=== PATIENT | female | born 1985 | race Caucasian/White ===

== ENCOUNTER 2019-03-13 18:14 | Emergency (ER) | payer OTHER ==
[2019-03-13 18:54] LABS: BASOPHILS % (AUTO) 0.5 %; EOSINOPHILS # (AUTO) 0.2 10^3/uL (0.0-0.7); EOSINOPHILS % (AUTO) 3.1 %; HGB - HEMOGLOBIN 12.1 g/dL (12.0-16.0); LYMPHOCYTES # (AUTO) 2.5 10^3/uL (1.5-3.5); LYMPHOCYTES % (AUTO) 44.9 %; MEAN CORPUSCULAR HEMOGLOBIN 28.1 pg (27.0-31.0); MEAN CORPUSCULAR HGB CONC 32.8 g/dL (32.0-36.0); MEAN CORPUSCULAR VOLUME 85.8 fL (81.0-99.0); MEAN PLATELET VOLUME 9.2 fL (7.9-10.8); MONOCYTES # (AUTO) 0.5 10^3/uL (0.0-1.0); MONOCYTES % (AUTO) 8.8 %; NEUTROPHILS # (AUTO) 2.4 10^3/uL (1.5-6.6); NEUTROPHILS % (AUTO) 42.5 %; PLT - PLATELET COUNT 219 10^3/uL (130-450); RED CELL DISTRIBUTION WIDTH 13.2 % (12.0-15.0); WHITE BLOOD COUNT 5.5 x10^3/uL (4.8-10.8)
[2019-03-13 19:04] LABS: ALBUMIN 4.3 g/dL (3.2-5.5); ALBUMIN/GLOBULIN RATIO 1.3 (1.0-2.2); BILIRUBIN,TOTAL 0.2 mg/dL (0.2-1.0); CREATININE 0.6 mg/dL (0.4-1.0); TOTAL PROTEIN 7.5 g/dL (6.7-8.2)
--- NOTE | 2019-03-13 19:33 | XRAY Report ---
Reason: CP Procedure Date: 03/13/2019 Accession Number: [id number] / [id number] Procedure: XR - Chest 1 View X-Ray CPT Code: 44953 Final Report FULL RESULT: EXAM: CHEST RADIOGRAPHY EXAM DATE: 03/13/2019 07:04 PM. CLINICAL HISTORY: Chest pain COMPARISON: None. TECHNIQUE: 1 view. FINDINGS: Lungs/Pleura: No focal opacities evident. No pleural effusion. No pneumothorax. Mediastinum: Within exam limitations, the cardiomediastinal contour is normal. Other: None. IMPRESSION: Normal single view chest. RADIA
--- NOTE | 2019-03-13 20:51 | ED Physician Documentation ---
History of Present Illness - Stated complaint Stated Complaint: CP, LT ARM PN, NAUSEA - Chief complaint Chief Complaint: Cardiac - Additonal information Additional information: This is a 33-year-old female history of anxiety presents with chest discomfort. Just before 5 PM patient was lying in the couch and she began having pain in her epigastric region which radiated to her chest, she states that when she started with some discomfort in her left arm as well, she called the nurse hotline and they suggested that she come here. She has never had a blood clot before, denies shortness of breath, no cough or hemoptysis, no fever. She has a little bit of nausea but no vomiting. She denies any cardiac or pulmonary history. No recent immobilization, hospitalization, long travel. No leg swelling. Her discomfort now has subsided. Review of Systems Constitutional: denies: Fever Nose: denies: Rhinorrhea / runny nose Cardiac: reports: Chest pain / pressure Respiratory: denies: Dyspnea GI: denies: Vomiting : denies: Dysuria Neurologic: denies: Generalized weakness PD PAST MEDICAL HISTORY - Past Medical History Psych: Anxiety - Allergies Allergies/Adverse Reactions: Allergies Allergy/AdvReac Type Severity Reaction Status Date / Time No Known Drug Allergies Allergy Verified 03/13/19 18:31 - Living Situation Living Arrangement: reports: At home - Social History Does the pt drink ETOH?: No - Family History Family history: reports: Non contributory PD ED PE NORMAL - General General: Alert and oriented X 3 - HEENT HEENT: Atraumatic - Neck Neck: Supple, no meningeal sign - Cardiac Cardiac: RRR - Respiratory Respiratory: No respiratory distress, Clear bilaterally - Abdomen Abdomen: Soft, Non distended (Very mild epigastric tenderness to deep palpation, no RUQ or lower abdominal tenderness.) - Neuro Neuro: Alert and oriented X 3 Results - Vitals Vitals: Vital Signs - 24 hr 03/13/19 03/13/19 03/13/19 18:26 19:52 21:01 Temperature 36.7 C Heart Rate 85 72 93 Respiratory 18 17 17 Rate Blood Pressure 120/75 109/75 145/83 H O2 Saturation 100 100 99 03/13/19 21:30 Temperature Heart Rate 52 L Respiratory 17 Rate Blood Pressure 100/70 O2 Saturation 98 Oxygen O2 Source Room air - EKG (time done) 18:46 Other comments: Other comments (Rate 80, rhythm sinus, No ST segment changes, no abnormal T wave inversions, intervals within normal limits) - Labs Labs: Laboratory Tests 03/13/19 03/13/19 03/13/19 18:46 18:46 18:46 WBC 5.5 RBC 4.30 Hgb 12.1 Hct 36.9 L MCV 85.8 MCH 28.1 MCHC 32.8 RDW 13.2 Plt Count 219 MPV 9.2 Neut # (Auto) 2.4 Lymph # (Auto) 2.5 Callahan # (Auto) 0.5 Eos # (Auto) 0.2 Baso # (Auto) 0.0 Absolute Nucleated RBC 0.00 Nucleated RBC % 0.0 Sodium 138 Potassium 3.3 L Chloride 105 Carbon Dioxide 25 Anion Gap 8.0 BUN 15 Creatinine 0.6 Estimated GFR (MDRD) 114 Glucose 92 Calcium 9.0 Total Bilirubin 0.2 AST 23 ALT 31 Alkaline Phosphatase 38 L Troponin I High Sens < 2.3 L Total Protein 7.5 Albumin 4.3 Globulin 3.2 Albumin/Globulin Ratio 1.3 Lipase 49 PD MEDICAL DECISION MAKING - ED course Complexity details: considered differential (Gastritis, GERD, PUD, ACS, dysrhythmia, PE, PNA, PTX) ED course: Pt presents with epigastric/chest discomfort that is now resolving. EKG shows no signs of ischemia or dysrhythmia, CXR unrevealing, labs unremarkable. Pt is very low risk for ACS and her high-sensitivity troponin is also negative. The characteristics of her symptoms are not consistent with PE, and she has normal O2 saturation, heart rate, no signs DVT, no immobilization or surgery, no hist ory of blood clots, making this further unlikely. The location of her pain does raise concern for GERD or gastritis. Abdomen is benign with no RUQ or lower abdominal pain, no signs of acute abdominal pathology. She was given famotidine. Given that she is feeling improved I discussed strict return precautions and PCP follow up and patient was discharged home. Departure - Departure Disposition: 01 Home, Self Care Clinical Impression: Chest pain Qualifiers: Chest pain type: unspecified Qualified Code(s): R07.9 - Chest pain, unspecified Condition: Good Instructions: ED Chest Pain Atypical Unkn Cause Follow-Up: Your,PCP [Other] Comments: You were seen today for pain in the upper abdomen/chest,, Your blood counts were normal, your labs at this time are reassuring and your chest x-ray was also normal. We did a test to measure strain of your heart (a high-sensitivity troponin), and this was normal. I am unsure what the cause of your chest discom fort is, You may use Tylenol 650 mg every 6 hours as needed pain, and try [id number] antacids to see if this helps, which would suggest potential gastritis/GERD. If you are developing shortness of breath, persistent vomiting, increasing pain, or other concerning symptoms please return to the emergency department. Otherwise please follow-up with your primary care provider as scheduled. Discharge Date/Time: 03/13/19 21:31
[2019-03-13] MEDS ORDERED: FAMOTIDINE 20 MG TABLET PO STA (21:10)
[2019-03-13] MEDS ORDERED: ONDANSETRON ODT 4 MG TABLET TL STA (21:11)
[2019-03-13 21:30] VITALS: BP 100/70
== END 2019-03-13 21:31 | disposition home or self-care (01) ==
LOC: ED 18:14
DX: R07.89 Other chest pain (principal); R10.13 Epigastric pain
CPT/HCPCS: 36415; 71045; 80053; 83690; 84484; 85025; 93005; 99284; A9270; Q0162

== ENCOUNTER 2019-03-17 13:27 | Outpatient (CLI) | payer OTHER | END 2019-03-17 13:28 | disposition EMS.NT | LOC: EMS 13:27 | PROVIDERS: ATTEND Surgery | DX: R07.89 Other chest pain (principal); R06.02 Shortness of breath ==

== ENCOUNTER 2021-03-20 09:06 | Emergency (ER) | payer OTHER ==
[2021-03-20 09:47] LABS: BASOPHILS % (AUTO) 0.4 %; EOSINOPHILS # (AUTO) 0.1 10^3/uL (0.0-0.7); EOSINOPHILS % (AUTO) 0.9 %; HCT - HEMATOCRIT 39.1 % (37.0-47.0); HGB - HEMOGLOBIN 13.2 g/dL (12.0-16.0); LYMPHOCYTES # (AUTO) 2.2 10^3/uL (1.5-3.5); LYMPHOCYTES % (AUTO) 25.8 %; MEAN CORPUSCULAR HEMOGLOBIN 28.5 pg (27.0-31.0); MEAN CORPUSCULAR HGB CONC 33.8 g/dL (32.0-36.0); MEAN CORPUSCULAR VOLUME 84.4 fL (81.0-99.0); MEAN PLATELET VOLUME 9.4 fL (7.9-10.8); MONOCYTES # (AUTO) 0.7 10^3/uL (0.0-1.0); MONOCYTES % (AUTO) 7.8 %; NEUTROPHILS # (AUTO) 5.5 10^3/uL (1.5-6.6); NEUTROPHILS % (AUTO) 64.9 %; PLT - PLATELET COUNT 257 10^3/uL (130-450); RED BLOOD COUNT 4.63 10^6/uL (4.20-5.40); RED CELL DISTRIBUTION WIDTH 13.7 % (12.0-15.0); WHITE BLOOD COUNT 8.5 x10^3/uL (4.8-10.8)
--- NOTE | 2021-03-20 09:48 | XRAY Report ---
PROCEDURE: Chest 1 View X-Ray INDICATIONS: Chest Pain TECHNIQUE: One view of the chest was acquired. COMPARISON: 03/13/2019 FINDINGS: Surgical changes and devices: None. Lungs and pleura: No pleural effusions or pneumothorax. Lungs are clear. Mediastinum: Mediastinal contours appear normal. Heart size is normal. Bones and chest wall: No suspicious bony lesions. Overlying soft tissues appear unremarkable. IMPRESSION: No acute disease. Reviewed by: Manjinder Peralta MD on 03/20/2021 9:47 AM [facility] Approved by: Manjinder Peralta MD on 03/20/2021 9:47 AM [facility] Station ID: [id number]
[2021-03-20 10:02] LABS: ALBUMIN 4.6 g/dL (3.2-5.5); ALBUMIN/GLOBULIN RATIO 1.2 (1.0-2.2); BILIRUBIN,TOTAL 0.8 mg/dL (0.2-1.0); CALCIUM 9.4 mg/dL (8.5-10.3); CREATININE 0.9 mg/dL (0.4-1.0); POTASSIUM 3.8 mmol/L (3.5-5.0); TOTAL PROTEIN 8.3 g/dL (6.7-8.2)
[2021-03-20] MEDS: SODIUM CHLORIDE 0.9% 1,000 ML IV STA (10:17)
[2021-03-20 10:33] VITALS: BP 106/71
--- NOTE | 2021-03-20 11:06 | ED Physician Documentation ---
PD HPI DYSPNEA - Stated complaint Stated Complaint: CHEST PRESSURE/WEAKNESS - Chief complaint Chief Complaint: Cardiac - History obtained from History obtained from: Patient - Additional information Additional information: Patient comes emergency department chief complaint of feeling "lethargic" this morning. She states that she woke up and just felt very "foggy and "and tired and not herself. She states that she has been feeling this way somewhat in recent days leading up to today and that it usually wears off by afternoon, Once her Adderall has kicked in. She states she is newly on this medication, and that she is extremely sensitive to medications and she suspects this is the problem. She has not been sick with anything recently. No cough, shortness of breath, rhinorrhea, sore throat, nausea, vomiting, or diarrhea. No dysuria. No headache. No numbness or tingling. The patient has had some chest pressure on and off. She states she is now feeling a bit better than when she woke up this morning, energy elias. She has not talked to her doctor about the symptoms she has been having since starting the Adderall a couple of weeks ago. Review of Systems Ten Systems: 10 systems reviewed and negative Constitutional: reports: Fatigue Eyes: reports: Reviewed and negative Ears: reports: Reviewed and negative Nose: reports: Reviewed and negative Throat: reports: Reviewed and negative Cardiac: reports: Reviewed and negative Respiratory: reports: Reviewed and negative GI: reports: Reviewed and negative : reports: Reviewed and negative Skin: reports: Reviewed and negative Musculoskeletal: reports: Reviewed and negative Neurologic: reports: Reviewed and negative Psychiatric: reports: Reviewed and negative Endocrine: reports: Reviewed and negative Immunocompromised: reports: Reviewed and negative PD PAST MEDICAL HISTORY - Past Medical History Past Medical History: Yes Cardiovascular: None Respiratory: None Neuro: None Endocrine/Autoimmune: None GI: None FIELD TAX AUDITOR: None : Chronic bladder infection HEENT: None Psych: Anxiety, Panic attacks, ADD/ADHD Musculoskeletal: None Derm: None - Past Surgical History Past Surgical History: No - Present Medications Home Medications: Ambulatory Orders Medication Instructions Recorded Confirmed Dextroamphetamine/Amphetamine 10 mg PO DAILY 03/20/21 03/20/21 [Dextroamp-Amphetamine 5 mg Tab] - Allergies Allergies/Adverse Reactions: Allergies Allergy/AdvReac Type Severity Reaction Status Date / Time No Known Drug Allergies Allergy Verified 03/20/21 09:12 - Social History Does the pt smoke?: No Smoking Status: Current every day smoker Does the pt drink ETOH?: Yes Does the pt have substance abuse?: No - Immunizations Immunizations are current?: Yes PD ED PE NORMAL - Vitals Vital signs reviewed: Yes - General General: Alert and oriented X 3, No acute distress, Well developed/nourished - HEENT HEENT: Atraumatic, PERRL, EOMI, Moist mucous membranes - Neck Neck: Supple, no meningeal sign - Cardiac Cardiac: RRR, No murmur, Strong equal pulses - Respiratory Respiratory: No respiratory distress, Clear bilaterally - Abdomen Abdomen: Soft, Non tender, Non distended - Back Back: No CVA TTP - Derm Derm: Normal color, Warm and dry, No rash - Extremities Extremities: No deformity, No edema, No calf tenderness / cord - Neuro Neuro: Alert and oriented X 3, 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, No motor deficit, No sensory deficit, Normal speech - Psych Psych: Normal mood, Normal affect Results - Vitals Vitals: Oxygen O2 Source Room air - EKG (time done) 0926 Rate: Rate (enter#) (72) Rhythm: NSR [place]: Normal Intervals: Normal MI QRS: Normal Ischemia: Normal ST segments Compare to prior EKG: Old EKG unavailable Computer interpretation: Agree with computer - Labs Labs: Laboratory Tests 03/20/21 03/20/21 03/20/21 09:41 09:41 09:41 WBC 8.5 RBC 4.63 Hgb 13.2 Hct 39.1 MCV 84.4 MCH 28.5 MCHC 33.8 RDW 13.7 Plt Count 257 MPV 9.4 Neut # (Auto) 5.5 Lymph # (Auto) 2.2 Hardin # (Auto) 0.7 Eos # (Auto) 0.1 Baso # (Auto) 0.0 Absolute Nucleated RBC 0.00 Nucleated RBC % 0.0 Sodium 135 Potassium 3.8 Chloride 104 Carbon Dioxide 20 L Anion Gap 11.0 BUN 17 Creatinine 0.9 Estimated GFR (MDRD) 71 L Glucose 98 Calcium 9.4 Total Bilirubin 0.8 AST 26 ALT 30 Alkaline Phosphatase 40 L Troponin I High Sens < 2.3 L Total Protein 8.3 H Albumin 4.6 Globulin 3.7 Albumin/Globulin Ratio 1.2 Lipase 52 H - Rads (name of study) cxr Radiology: Final report received, EMP read indepedently, See rad report (nad) PD MEDICAL DECISION MAKING - ED course Complexity details: reviewed results, re-evaluated patient, considered differential, d/w patient ED course: The patient was worked up with labs, chest x-ray, and EKG, all of which were unremarkable. She was given a liter of IV fluid. I have not found a specific reason for her fatigue, and her symptoms are very vague. We have discussed the need for follow-up with her doctor to discuss whether she should still be on the Adderall at the current dose. We have discussed the usual indications for return. Departure - Departure Disposition: 01 Home, Self Care Clinical Impression: Fatigue Qualifiers: Fatigue type: unspecified Qualified Code(s): R53.83 - Other fatigue Condition: Stable Instructions: ED Drug React Adverse Other Comments: It is not clear why you felt fatigued this morning. Your labs look good and there is no emergent cause of your symptoms that has been identified. Given that you have a history of being sensitive to medications, it is possible that you are having an adverse reaction to your Adderall. It is also possible that you are experiencing some rebound fatigue after the stimulating effects of the Adderall wear off. Please speak with your doctor about whether you should continue on this medication at the current dose. If you continue to have symptoms like this, please follow-up to determine whether any further investigation is needed. No emergent condition has been identified today. Discharge Date/Time: 03/20/21 11:25
== END 2021-03-20 11:25 | disposition home or self-care (01) ==
LOC: ED 09:06
DX: R53.83 Other fatigue (principal); F17.200 Nicotine dependence, unspecified, uncomplicated
CPT/HCPCS: 36415; 80053; 83690; 84484; 85025; 93005; 99283; 99284